=== PATIENT | female | born 1940 | race Caucasian/White ===

== ENCOUNTER 2016-09-21 05:02 | Inpatient (IN) ==
[2016-09-20 13:02] LABS: MANUAL DIFF NEEDED? NO; URINE MICRO REVIEW NEEDED? NO; URINE SOURCE CLEAN CATCH
[2016-09-20 13:12] LABS: BASO% 0.5 % (0.0-0.8); BILIRUBIN URINE NEGATIVE (NEGATIVE); BLOOD URINE NEGATIVE (NEGATIVE); COLOR YELLOW; EOS# 0.51 X1000 (0.0-0.7); EOS% 6.2 % (0.0-10.0); GLUCOSE URINE NEGATIVE (NEGATIVE); HEMATOCRIT 40.1 % (37.0-47.0); HEMOGLOBIN 13.1 g/dL (12.0-16.0); LEUKOCYTES URINE NEGATIVE (NEGATIVE); LYMPH# 1.81 X1000 (1.2-3.4); MCH 29.3 PG (27-31); MCHC 32.7 g/dL (33-37); MCV 89.7 FL (81-99); MONO# 1.17 X1000 (0.11-0.59); MONO% 14.3 % (1.7-9.3); MPV 9.3 FL (7.4-10.4); NITRITE URINE NEGATIVE (NEGATIVE); PH URINE 5.5; PLT 363 X1000 (130-400); PROTEIN URINE NEGATIVE (NEGATIVE); RBC 4.47 XMIL (4.2-5.4); SP GRAVITY URINE 1.009; TURBIDITY URINE CLEAR (CLEAR); UROBILINOGEN URINE NORMAL (NORMAL)
[2016-09-20 13:13] LABS: UR EPITHELIAL CELLS <10 /HPF (<10); URINE BACTERIA NEGATIVE /HPF; URINE RBC <10 /HPF (<10); URINE WBC <10 /HPF (<10)
[2016-09-20 13:21] LABS: INR 0.96; PTT 27.3 Seconds (22.0-36.0)
[2016-09-20 13:58] LABS: AGAP 15; BUN 19 mg/dL (8-22); CALCIUM 9.6 mg/dL (8.8-10.2); CHLORIDE 98 mmol/L (98-107); COSMO 277; POTASSIUM 4.9 mmol/L (3.5-5.1); SODIUM 138 mmol/L (136-145); TCO2 25 mmol/L (25-35)
--- NOTE | 2016-09-20 14:22 | EKG Report ---
Test Performed on : 09/20/2016 12:49:01 PM Test Reason : pat Blood Pressure : / mmHG Vent. Rate : 065 BPM Atrial Rate : 065 BPM P-R Int : 180 ms QRS Dur : 090 ms QT Int : 392 ms P-R-T Axes : 025 012 054 degrees QTc Int : 407 ms Normal sinus rhythm. Normal ECG When compared with ECG of 07-APR-2015 14:18, No significant change was found Confirmed by Derrick Cruz MD ([id number]) on 09/22/2016 12:04:19 PM
[2016-09-21] MEDS ORDERED: CELEBREX ONE (08:37)
[2016-09-21] MEDS ORDERED: COLACE ONE (08:37)
[2016-09-21] MEDS ORDERED: LYRICA ONE (08:37)
[2016-09-21] MEDS ORDERED: LR 1,000 ML ONE ×2 (08:38→13:31)
[2016-09-21] MEDS ORDERED: PEPCID ONE (08:38)
[2016-09-21] MEDS ORDERED: KEFZOL 2 GM/D5W 2 GM/50 ML IVPB ONE (08:38)
[2016-09-21] MEDS: REGLAN PO SCH (08:49)
[2016-09-21] MEDS ORDERED: SODIUM CHLORIDE 0.9% ONE (09:35)
[2016-09-21] MEDS ORDERED: MARCAINE 0.25% PF/EPI 1:200,000 ONE (09:35)
[2016-09-21] MEDS ORDERED: VANCOMYCIN ONE (09:35)
[2016-09-21] MEDS ORDERED: TORADOL ONE (09:35)
[2016-09-21] MEDS ORDERED: EXPAREL 1.3% ONE (09:36)
[2016-09-21] MEDS ORDERED: CYKLOKAPRON 1,000 MG/NS 1,000 MG/100 ML IVPB ONE ×2 (09:36→09:37)
[2016-09-21] MEDS ORDERED: NEOSPORIN G.U. IRRIGANT ONE (09:36)
[2016-09-21 10:55] LABS: URINE MICRO REVIEW NEEDED? NO; URINE SOURCE CATH
[2016-09-21 10:59] LABS: BILIRUBIN URINE NEGATIVE (NEGATIVE); BLOOD URINE NEGATIVE (NEGATIVE); COLOR YELLOW; GLUCOSE URINE NEGATIVE (NEGATIVE); LEUKOCYTES URINE NEGATIVE (NEGATIVE); NITRITE URINE NEGATIVE (NEGATIVE); PH URINE 5.5; PROTEIN URINE NEGATIVE (NEGATIVE); SP GRAVITY URINE 1.009; TURBIDITY URINE CLEAR (CLEAR); UROBILINOGEN URINE NORMAL (NORMAL)
[2016-09-21 11:00] LABS: UR EPITHELIAL CELLS <10 /HPF (<10); URINE BACTERIA NEGATIVE /HPF; URINE RBC <10 /HPF (<10); URINE WBC <10 /HPF (<10)
[2016-09-21] MEDS: SYNTHROID PO SCH (12:08)
[2016-09-21] MEDS: PRINIVIL PO SCH (12:09)
[2016-09-21] MEDS: MOBIC PO SCH (12:09)
[2016-09-21] MEDS: TOPROL XL PO SCH (12:09)
[2016-09-21] MEDS ORDERED: KETAMINE (DOSE) ONE (13:14)
[2016-09-21] MEDS ORDERED: FENTANYL ONE (13:14)
[2016-09-21] MEDS ORDERED: AMIDATE ONE (13:30)
[2016-09-21] MEDS ORDERED: XYLOCAINE-MPF 2% ONE (13:30)
[2016-09-21] MEDS ORDERED: ROBINUL ONE (13:30)
[2016-09-21] MEDS ORDERED: ZOFRAN ONE (13:30)
[2016-09-21] MEDS ORDERED: OFIRMEV 1000 MG/ISOTONIC SOLN 1,000 MG/100 ML BOTTLE ONE (13:31)
[2016-09-21] MEDS ORDERED: DECADRON ONE (13:31)
[2016-09-21] MEDS ORDERED: DILAUDID ONE (13:44)
[2016-09-21] MEDS ORDERED: NS 1,000 ML ONE (14:00)
--- NOTE | 2016-09-21 14:29 | OPERATIVE NOTE ---
PROCEDURE DATE: 09/21/2016 PREOPERATIVE DIAGNOSIS: Failed right total knee arthroplasty, status post periprosthetic distal femur fracture with malunion. POSTOPERATIVE DIAGNOSIS: Failed right total knee arthroplasty, status post periprosthetic distal femur fracture with malunion. PROCEDURE PERFORMED: Revision right total knee arthroplasty with DePuy Sigma size 3 distal femur with a 46 femoral sleeve and an 18 x 75 universal fluted stem, with a size 3 tibial tray, a 53 metaphyseal sleeve, a 75 x 16 mm universal fluted stem, and a 20 mm rotating platform tibial insert. SURGEON: Piotr Oliver MD 1ST WREATH MACHINE TENDER: GWENDOLYN Rubin 2ND ASSISTANTS: 1. PARNAV Ruiz 2. Todd Ramachandran RN ANESTHESIA: General. IV FLUIDS: 1100 mL of lactated Ringer's. ESTIMATED BLOOD LOSS: 50 mL. TOURNIQUET TIME: 2 hours at 350 mmHg. COMPLICATIONS: None. INDICATIONS: The patient is a pleasant 76-year-old female who is status post right total knee arthroplasty in 2014. The patient, in her postoperative recovery, did sustain a fracture involving the distal femur laterally. It was treated nonoperatively. It went on to heal. Over the last 2 years, patient has had some worsening pain and discomfort, and x-rays did reveal malunion of the distal femur. Given the patient's continued pain and discomfort, a recommendation to proceed with revision total knee arthroplasty was offered. The risks and benefits of surgery were explained, including risks of anesthesia, , bleeding, infection, failure to relieve pain, postoperative stiffness, nerve injury, blood clots, and other imponderables. All questions were answered. The patient and family wished to proceed with surgery. DETAILS OF OPERATION: The patient was taken to the operating room and placed supine on the operating table. Once adequate anesthesia was obtained, the patient's right lower extremity was subsequently prepped and draped in the usual sterile fashion. An anterior incision was made through the previous surgical incision and extended both proximally and distally. Standard medial parapatellar arthrotomy was then performed. Intraoperative cultures were obtained. There was some serous fluid noted and no signs or symptoms of infection. The procedure proceeded with removal of the tibial tray. After this had been performed, attention was then turned to the distal femur. It was noted that the distal femoral component appeared be recessed in the lateral portion of the femur from the previous fracture. After an osteotome was used to [place] around both medial and laterally along the femoral component, this was then removed without difficulty. A saw was then used just below the tibial tray and this was then elevated. An osteotome was used to remove the cement on the proximal tibia. After this had been performed, intramedullary reaming was then conducted into the distal femur. The proximal tibia was then overreamed. After this had been performed, sequential broaching with a metaphyseal broach was conducted up to size 53. A size 53 trial sleeve with a size 3 tibial component and a 75 x 16 mm stem was then placed in position and had good fit. Attention was then turned to the distal femur and intramedullary reaming was then conducted. Sequential broaching was then performed up to size 46. The guide was then placed and the distal femoral cut was then performed in standard fashion. The patient had significant bone loss laterally. Chamfer cuts were then made as well. Anterior and posterior cuts were made as well. A box cutting guide was then placed in position and a box cut was performed. After this had been performed, the trial broach was removed. A trial size 3 femur with a 46 sleeve and a 75 x 18 universal fluted stem was then placed in position. It appeared to have good fit. A trial polyethylene was then placed. The patient did have some lateral translation of the patella and a lateral release was performed. After this had been performed, the patellar component had no obvious loosening. The trial components were removed. The femoral and tibial components were assembled on the back table while copious irrigation was performed with antibiotic pulsatile lavage. Vancomycin was then mixed with cement on the back table. Sequential cementing was then performed, first with the tibial tray, along the superior aspect of the proximal tibia and the size 3 with the 53 metaphyseal sleeve and a 75 x 16 universal fluted stem was then impacted in the tibia. Excess cement was removed with a [place]. This was followed by a size 3 femur, size 46 universal femoral sleeve, and a 75 x 18 mm universal fluted stem impacted in position. Excess cement was removed with a [place]. A trial tibial insert was placed and axial loading was maintained while the cement cured. Exparel was placed in the deep soft tissue as well as subcutaneous tissue while the cement was curing. After the cement had cured, the size 20 mm tibial insert appeared to be the correct size. This was then removed. Exparel was placed in the deep posterior capsule. The wound was copiously irrigated with antibiotic pulsatile lavage, followed by the 20 mm rotating platform tibial insert. The patient had good stability good range of motion. A 1/8 Hemovac drain was placed was not sewn in. Copious irrigation was performed once again with antibiotic pulsatile lavage. Suture of #1 Vicryl was then used to repair the arthrotomy, followed by 2-0 Vicryl in the subcutaneous tissue, and skin laura. Sterile 4 x 4's, ABD pad, [place], and a cryo unit, followed by an [place] wrap were applied to the right lower extremity. The patient tolerated the procedure well with no complications and was transferred to the recovery room in stable condition. cc: Piotr Oliver MD
--- NOTE | 2016-09-21 14:35 | Diag Imaging Result Document ---
PROCEDURE NAME: KNEE 1-2 VIEWS-RIGHT - 09/21/2016 PLAIN RADIOGRAPH OF THE RIGHT KNEE, 2 VIEWS: COMPARISON: 04/08/2015. FINDINGS: There has been a recent revision of a right knee arthroplasty. The new arthroplasty hardware is in the expected position. There is no evidence of periprosthetic fracture. Anterior skin laura and a drainage catheter are in place. IMPRESSION: Satisfactory postoperative knee.
[2016-09-21] MEDS ORDERED: DILAUDID IV PRN (14:40)
[2016-09-21] MEDS ORDERED: MILK OF MAGNESIA PO PRN (14:45)
[2016-09-21] MEDS ORDERED: ZOFRAN PO PRN (14:45)
[2016-09-21] MEDS: OXY IR PO PRN ×3 (15:32→21:26)
[2016-09-21] MEDS: NS 1,000 ML IV SCH (15:34)
--- NOTE | 2016-09-21 15:42 | HISTORY AND PHYSICAL ---
CHIEF COMPLAINT: Right knee pain. HISTORY OF PRESENT ILLNESS: Patient has been having right knee pain for some time after a periprosthetic fracture of the right knee. PAST MEDICAL HISTORY: Hypertension, hyperlipidemia, gastroesophageal reflux disease, hyperthyroidism. PAST SURGICAL HISTORY: Bilateral cataracts. Right total knee arthroplasty. Left ear surgery. Hammertoes bilaterally. Right wrist surgery. FAMILY HISTORY: Noncontributory. SOCIAL HISTORY: She is . She denies tobacco. Denies alcohol. CURRENT MEDICATIONS: Lisinopril 40 mg p.o. daily. Fosamax 70 mg p.o. every 7 days. Pravachol 20 mg p.o. at bedtime. Toprol-XL 100 mg p.o. daily. Synthroid 150 mcg p.o. daily. Mobic 7.5 mg p.o. daily. Ultram 50 mg p.o. p.r.n. Reglan 10 mg p.o. daily. ALLERGIES: Morphine. PRIMARY CARE PROVIDER: Daniel Baeza MD REVIEW OF SYSTEMS: Patient reports wearing glasses and having dentures and having right knee pain. The patient answered negative in all other review of systems. PHYSICAL EXAMINATION: GENERAL: The patient is awake, sitting up in bed. She is articulate and able to answer questions appropriately. HEENT: Head is normocephalic, atraumatic. Pupils equal, round, reactive to light. Nares patent. Throat without exudate. CARDIAC: S1-S2 auscultated. No murmur, rub or gallop noted. LUNGS: Clear to auscultation bilaterally. ABDOMEN: Soft, nontender, nondistended. Bowel sounds present in all quadrants. GENITOURINARY: Not examined. NEUROLOGICAL: Patient has good sensation to dull touch in all extremities. Cranial nerves 2-12 grossly intact. MUSCULOSKELETAL: Patient complains of right knee pain with palpation and passive range of motion. IMPRESSION: Right distal femur periprosthetic fracture. PLAN: Right knee revision post periprosthetic femur fracture. The risks benefits and alternatives of surgery were discussed with the patient, including risk of anesthesia, bleeding, damage to blood vessels, nerves, tendons, ligaments, and other imponderables were discussed. The patient agrees to proceed with surgery at this time. Dictated by PRANAV Ruiz for Piotr Oliver MD cc: PRANAV Ruiz MD
[2016-09-21] MEDS: TYLENOL PO SCH ×2 (16:36→21:23)
[2016-09-21] MEDS: KEFZOL 2 GM/D5W 2 GM/50 ML IVPB IV SCH (17:18)
[2016-09-21] MEDS: COLACE PO SCH (21:27)
[2016-09-21] MEDS: PERIDEX MT SCH (21:27)
[2016-09-21] MEDS: PRAVACHOL PO SCH (21:27)
[2016-09-22] MEDS: KEFZOL 2 GM/D5W 2 GM/50 ML IVPB IV SCH (02:07)
[2016-09-22] MEDS: TYLENOL PO SCH ×5 (02:07→21:01)
[2016-09-22] MEDS: NS 1,000 ML IV SCH ×2 (02:08→16:21)
[2016-09-22] MEDS: OXY IR PO PRN ×5 (03:36→21:01)
[2016-09-22 06:39] LABS: HEMATOCRIT 31.9 % (37.0-47.0); HEMOGLOBIN 10.2 g/dL (12.0-16.0)
[2016-09-22] MEDS: SYNTHROID PO SCH (06:47)
[2016-09-22] MEDS: XARELTO PO SCH (06:47)
[2016-09-22 07:01] LABS: AGAP 12; BUN 17 mg/dL (8-22); CALCIUM 8.2 mg/dL (8.8-10.2); CHLORIDE 100 mmol/L (98-107); COSMO 272; POTASSIUM 5.2 mmol/L (3.5-5.1); SODIUM 135 mmol/L (136-145); TCO2 23 mmol/L (25-35)
--- NOTE | 2016-09-22 07:10 | PROGRESS NOTE ---
DATE: 09/22/2016 SUBJECTIVE: The patient is a pleasant 76-year-old female who is 1 day status post right revision right total knee arthroplasty. She is currently resting comfortably. OBJECTIVE: On physical exam of her right lower extremity her dressing is intact. Her calf is soft. She has active dorsiflexion and plantar flexion. LABORATORY DATA: Her hemoglobin is 10.2 and hematocrit is 31.9. IMPRESSIONS: Postoperative day #1 status post revision right total knee arthroplasty. PLAN: At this point, we will change her dressing and discontinue her drain and Irene. We will also Hep-Lock her IV. We will mobilize with physical therapy. Concrete Batching Plant Operator has been consulted for discharge planning for home physical therapy. cc: Piotr Oliver MD
[2016-09-22] MEDS: TOPROL XL PO SCH (08:31)
[2016-09-22] MEDS: PRINIVIL PO SCH (08:31)
[2016-09-22] MEDS: PEPCID PO SCH (08:32)
[2016-09-22] MEDS: PERIDEX MT SCH ×2 (08:32→21:01)
[2016-09-22] MEDS: MOBIC PO SCH (08:32)
[2016-09-22] MEDS: COLACE PO SCH ×2 (08:32→21:01)
[2016-09-22] MEDS ORDERED: DECADRON IV ONE (09:00)
[2016-09-22] MEDS: PRAVACHOL PO SCH (21:01)
[2016-09-23] MEDS: OXY IR PO PRN ×4 (00:32→12:12)
[2016-09-23] MEDS: TYLENOL PO SCH ×2 (01:28→08:38)
[2016-09-23 05:50] LABS: HEMATOCRIT 27.2 % (37.0-47.0); HEMOGLOBIN 8.5 g/dL (12.0-16.0)
[2016-09-23] MEDS: XARELTO PO SCH (06:10)
[2016-09-23] MEDS: SYNTHROID PO SCH (06:10)
--- NOTE | 2016-09-23 06:47 | PROGRESS NOTE ---
DATE: 09/23/2016 SUBJECTIVE: The patient is a 76-year-old female, 2 days status post revision right total knee arthroplasty. She is currently resting comfortably. PHYSICAL EXAMINATION: Lower extremity: Her right lower extremity her wound looks good. There is no signs of infection. She has expected swelling. Her calf is soft. She has active dorsiflexion and plantar flexion. Her hemoglobin is 8.5, hematocrit is 27.2. IMPRESSION: 1. Postoperative day #2, status post revision right total knee arthroplasty. 2. Acute blood loss anemia, asymptomatic. PLAN: At this point, we will plan on discharging home after physical therapy. We will consult Family And Divorce Legal Assistant to arrange for home physical therapy. Patient will followup on 10/04/2016. cc: Piotr Oliver MD
[2016-09-23] MEDS: PERIDEX MT SCH (08:37)
[2016-09-23] MEDS: PEPCID PO SCH (08:37)
[2016-09-23] MEDS: MOBIC PO SCH (08:38)
[2016-09-23] MEDS: REGLAN PO SCH (08:38)
[2016-09-23] MEDS: PRINIVIL PO SCH (08:39)
[2016-09-23] MEDS: COLACE PO SCH (08:39)
[2016-09-23] MEDS: TOPROL XL PO SCH (08:39)
[2016-09-23 11:10] VITALS: BP 108/44
[2016-09-28] MEDS ORDERED: FOSAMAX PO SCH (06:00)
== END 2016-09-23 12:25 | disposition home health service (06) ==
LOC: SURHOLD 05:02 → 4N 11:41
PROVIDERS: ADMIT Orthopaedic Surgery Adult Reconstructive Orthopaedic Surgery; ATTEND Orthopaedic Surgery Adult Reconstructive Orthopaedic Surgery

== ENCOUNTER 2018-10-30 07:59 | Inpatient (IN) ==
--- NOTE | 2018-10-23 09:16 | EKG Report ---
Test Performed on : 10/23/2018 08:57:55 AM Test Reason : PAT Blood Pressure : / mmHG Vent. Rate : 072 BPM Atrial Rate : 072 BPM P-R Int : 190 ms QRS Dur : 106 ms QT Int : 364 ms P-R-T Axes : 036 021 065 degrees QTc Int : 398 ms Normal sinus rhythm. Normal ECG When compared with ECG of 20-SEP-2016 12:49, No significant change was found Confirmed by Doc CHAVEZ, Yazan Blank ([id number]) on 10/24/2018 9:43:34 AM
[2018-10-23 09:28] LABS: URINE SOURCE CLEAN CATCH
[2018-10-23 09:31] LABS: BASO# 0.06 X1000 (0.0-0.2); BASO% 0.6 % (0.0-0.8); EOS# 0.35 X1000 (0.0-0.7); EOS% 3.6 % (0.0-10.0); HEMOGLOBIN 13.1 g/dL (12.0-16.0); LYMPH# 2.05 X1000 (1.2-3.4); LYMPH% 20.9 % (20.5-51.1); MCH 29.4 PG (27-31); MCV 92.1 FL (81-99); MONO# 1.34 X1000 (0.11-0.59); MONO% 13.6 % (1.7-9.3); MPV 9.5 FL (7.4-10.4); NEUT# 6.03 X1000 (1.4-6.5); NEUT% 61.3 % (42.2-75.2); PLT 440 X1000 (130-400); RBC 4.45 XMIL (4.2-5.4); RDW 15.5 % (11.5-14.5); WBC 9.83 X1000 (4.8-10.8)
[2018-10-23 09:44] LABS: INR 0.99; PROTIME 13.9 Seconds (11.0-16.0)
[2018-10-23 10:25] LABS: CREATININE 1.7 mg/dL (0.5-0.9); POTASSIUM 5.8 mmol/L (3.5-5.1)
[2018-10-23 10:30] LABS: BILIRUBIN URINE NEGATIVE (NEGATIVE); BLOOD URINE TRACE (NEGATIVE); COLOR YELLOW; GLUCOSE URINE NEGATIVE (NEGATIVE); KETONE URINE NEGATIVE (NEGATIVE); LEUKOCYTES URINE LARGE (NEGATIVE); NITRITE URINE NEGATIVE (NEGATIVE); PROTEIN URINE TRACE mg/dL (NEGATIVE); SP GRAVITY URINE 1.012; TURBIDITY URINE HAZY (CLEAR); UR EPITHELIAL CELLS <10 /HPF (<10); URINE BACTERIA NEGATIVE /HPF; URINE RBC <10 /HPF (<10); URINE WBC TNTC /HPF (<10); UROBILINOGEN URINE NORMAL (NORMAL)
[2018-10-30] MEDS ORDERED: XYLOCAINE-MPF 2% ONE (08:06)
[2018-10-30] MEDS ORDERED: DIPRIVAN 1% ONE (08:06)
[2018-10-30] MEDS ORDERED: ROBINUL ONE ×2 (08:06→10:33)
[2018-10-30] MEDS ORDERED: PEPCID ONE (08:19)
[2018-10-30] MEDS ORDERED: REGLAN ONE (08:19)
[2018-10-30] MEDS ORDERED: CELEBREX ONE (08:19)
[2018-10-30] MEDS ORDERED: LYRICA ONE (08:19)
[2018-10-30] MEDS ORDERED: COLACE ONE ×2 (08:19→08:43)
[2018-10-30] MEDS ORDERED: LR 1,000 ML ONE (08:20)
[2018-10-30] MEDS ORDERED: KEFZOL 1 GM/D5W 2 GM/100 ML IVPB ONE (08:20)
[2018-10-30] MEDS ORDERED: DURAMORPH ONE (08:59)
[2018-10-30] MEDS ORDERED: TORADOL ONE (08:59)
[2018-10-30] MEDS ORDERED: MARCAINE 0.25% PF/EPI 1:200,000 ONE (08:59)
[2018-10-30] MEDS ORDERED: VANCOMYCIN ONE (09:00)
[2018-10-30] MEDS ORDERED: SODIUM CHLORIDE 0.9% ONE (09:00)
[2018-10-30] MEDS ORDERED: CYKLOKAPRON 1,000 MG/NS 1,000 MG/100 ML IVPB ONE (09:00)
[2018-10-30] MEDS ORDERED: EXPAREL 1.3% ONE (09:01)
[2018-10-30] MEDS ORDERED: NEOSPORIN G.U. IRRIGANT ONE ×2 (09:01→09:48)
[2018-10-30 09:12] LABS: POTASSIUM 5.9 mmol/L (3.5-5.1)
[2018-10-30 09:13] LABS: CALCIUM 9.2 mg/dL (8.8-10.2); CREATININE 1.5 mg/dL (0.5-0.9)
[2018-10-30] MEDS ORDERED: CALCIUM CHLORIDE SYRINGE ONE (09:40)
[2018-10-30] MEDS ORDERED: ZEMURON ONE (10:01)
[2018-10-30] MEDS ORDERED: DECADRON ONE (10:03)
[2018-10-30] MEDS ORDERED: OFIRMEV 1000 MG/ISOTONIC SOLN 1,000 MG/100 ML BOTTLE ONE (10:04)
[2018-10-30] MEDS ORDERED: VERSED ONE (10:06)
[2018-10-30 10:32] LABS: URINE SOURCE CATH
[2018-10-30] MEDS ORDERED: NEOSTIGMINE ONE (10:33)
[2018-10-30 10:36] LABS: BILIRUBIN URINE NEGATIVE (NEGATIVE); BLOOD URINE NEGATIVE (NEGATIVE); COLOR YELLOW; GLUCOSE URINE NEGATIVE (NEGATIVE); KETONE URINE NEGATIVE (NEGATIVE); LEUKOCYTES URINE MODERATE (NEGATIVE); NITRITE URINE NEGATIVE (NEGATIVE); PH URINE 5.5; PROTEIN URINE NEGATIVE (NEGATIVE); TURBIDITY URINE CLEAR (CLEAR); UROBILINOGEN URINE NORMAL (NORMAL)
[2018-10-30 10:39] LABS: UR EPITHELIAL CELLS <10 /HPF (<10); URINE BACTERIA NEGATIVE /HPF; URINE RBC <10 /HPF (<10); URINE WBC 20-40 /HPF (<10)
[2018-10-30] MEDS ORDERED: NS 1,000 ML ONE (12:08)
[2018-10-30] MEDS: DILAUDID ONE ×2 (12:16→12:28)
[2018-10-30] MEDS ORDERED: DILAUDID ONE (12:46)
--- NOTE | 2018-10-30 12:50 | Diag Imaging Result Doc PS360 ---
KNEE 1-2 VIEWS-LEFT - 10/30/2018 INDICATION: post op TECHNIQUE: Two views COMPARISON: None FINDINGS: There has been placement of a long stemmed, hinged knee prosthesis. Alignment is anatomic. No hardware fracture or loosening. IMPRESSION: No complication. Electronically signed by Dharmesh Go 10/30/2018 12:47 PM
[2018-10-30] MEDS ORDERED: DILAUDID IV PRN (14:45)
[2018-10-30] MEDS ORDERED: ZOFRAN ODT PO PRN (14:45)
[2018-10-30] MEDS ORDERED: OXY IR PO PRN (14:45)
[2018-10-30] MEDS: OXY IR PO PRN ×3 (14:56→21:01)
--- NOTE | 2018-10-30 15:10 | OPERATIVE NOTE ---
PROCEDURE DATE: 10/30/2018 PREOPERATIVE DIAGNOSIS: Degenerative joint disease, right knee. POSTOPERATIVE DIAGNOSIS: Degenerative joint disease, right knee. PROCEDURE PERFORMED: Right total knee replacement. SURGEON: Pj Lloyd MD. FOOD PROCESSING PLANT MANAGER: PRANAV Perez. Mr. Trejo was necessary for proper retraction and manipulation of the case. ANESTHESIA: General. COMPLICATION: None. PROCEDURE IN DETAIL: This 78-year-old female presents for a left total knee replacement. Risks, benefits, and no guarantees were discussed, and she is willing to proceed. She was taken to the operating room and satisfactory anesthesia obtained. The left knee was prepped and draped in the usual sterile fashion. A time-out was taken to confirm operative site, procedure and patient. The leg was then wrapped with an Esmarch tourniquet and inflated 350 mmHg. A midline incision was made over the front of the knee followed by a quad tendon sparing arthrotomy. The patella was everted and resurfaced with freehand technique and sized to a 32 DePuy round dome patella. The drill paddle was used to prepare for the patellar implant, and a trial patella placed on this to protect it. With the patella subluxed laterally, the knee was flexed. An intramedullary hole made in the distal femur. Sequential broaching of the distal femur was undertaken up to an 18 stem. A proximal sleeve was then broached for the femur up to a 46 femoral sleeve for the Sigma revision stem prosthesis. The distal femoral cut was then made. The tibial cut was then made freehand and tibial reaming down the intramedullary canal of the tibia with the knee flexed undertaken up to an 18 reamer. Tibial sleeve was then broached up to a 45 tibial sleeve. A size 3 femoral component and tibial component was selected. The finishing block for the femur was then placed onto the intramedullary collin, and the rotation set using a soft tissue balancing off the tibial tray. The anterior and posterior and chamfer cuts of the femur were then made followed by the notch cup. After final preparation of the femur and tibia, any remaining osteophytes or meniscal tissue was excised with care taken to preserve the collateral ligaments and neurovascular bundles. A trial reduction was performed with a 12.5 mm poly thickness spacer with good range of motion and stability. The trial components were removed and the bony surfaces thoroughly irrigated with pulsatile lavage. The tibial and femoral implants were assembled on the back table with a size 3 tibial tray connected to a 45 porous sleeve and a 75 x 18 fluted stem. The femoral component was assembled with a right size 3 Sigma revision femoral component with a 46 sleeve and a 75 x 18 stem. Cement with a gram of vancomycin was then utilized to cement the implants in place, as well as a 32 medialized dome patellar poly. While the cement cured, the joint capsule was injected with Exparel for pain management. A Hemovac drain placed. The excess cement was removed with a [place] elevator. After curing of the cement, a size 3 posterior stabilized rotating platform poly 12.5 thickness was inserted in the tibial tray and the knee reduced. Final range of motion was assessed with 0 to 125 degrees of motion and midline patellar tracking. The arthrotomy was copiously irrigated and closed over the drain with #1 Vicryl in the arthrotomy, 2-0 Vicryl in the subcutaneous and skin laura on the skin edges. Sterile dressings completed the closure, and the patient was recovered from anesthesia and transferred to the recovery room in stable condition. No intraoperative complications were noted. Instrument count and sponge count were correct at the time of closure. cc: Isai Lloyd MD
[2018-10-30] MEDS: NEURONTIN PO SCH ×2 (15:40→21:02)
[2018-10-30] MEDS: ULTRAM PO SCH ×3 (15:41→22:09)
[2018-10-30] MEDS: TYLENOL PO SCH ×2 (15:42→23:08)
--- NOTE | 2018-10-30 15:46 | ORTHOPAEDICS PROGRESS NOTE ---
DATE: 10/30/2018 Ms. Salas is seen status post total knee replacement. She is alert and comfortable the present time. Her postop x-rays look good in terms of the alignment. Vital signs are stable. Her bandage is clean and dry and she appears to be motor and sensory intact. We will plan on mobilizing her and discharging home when she is mobilizing well. cc: Isai Lloyd MD
[2018-10-30] MEDS: KEFZOL 2 GM/D5W 2 GM/50 ML IVPB IV SCH (17:55)
[2018-10-30] MEDS: NS 1,000 ML IV SCH (19:00)
[2018-10-30] MEDS ORDERED: PEPCID PO SCH (21:00)
[2018-10-30] MEDS: ZANAFLEX PO SCH (21:01)
[2018-10-30] MEDS: PERIDEX MT SCH (21:02)
[2018-10-30] MEDS: PRAVACHOL PO SCH (21:02)
[2018-10-30] MEDS: CELEBREX PO SCH (21:08)
[2018-10-30] MEDS: ZOFRAN IV PRN (21:08)
[2018-10-30] MEDS: COLACE PO SCH (21:08)
[2018-10-30] MEDS: PEPCID PO SCH (23:08)
[2018-10-31] MEDS: KEFZOL 2 GM/D5W 2 GM/50 ML IVPB IV SCH (01:11)
[2018-10-31] MEDS: ZOFRAN IV PRN (04:42)
[2018-10-31] MEDS: TYLENOL PO SCH ×4 (04:43→21:48)
[2018-10-31] MEDS: OXY IR PO PRN (04:43)
[2018-10-31] MEDS: ULTRAM PO SCH ×2 (04:46→08:59)
[2018-10-31 05:47] LABS: HEMATOCRIT 37.6 % (37.0-47.0)
[2018-10-31] MEDS: SYNTHROID PO SCH (06:20)
[2018-10-31] MEDS: NS 1,000 ML IV SCH ×3 (06:20→15:27)
[2018-10-31] MEDS: DILAUDID IV PRN (06:39)
--- NOTE | 2018-10-31 07:21 | ORTHOPAEDICS PROGRESS NOTE ---
DATE: 10/31/2018 Ms. Salas is seen today status post knee replacement. At the present time, she is afebrile with stable vital signs. Her postop hematocrit is pending at the present time but started at 36 with minimal blood loss yesterday. Her bandage is clean and dry. She appears to be motor and sensory intact. We will plan on mobilizing her today and she can go home today with home therapy. We will see her back in roughly 12 days. She is to continue with all her regular medicines. She is to return in the interim for any worsening signs or symptoms. She is discharged home on her regular medicines plus Smyer 10 as needed for pain, Bactrim as needed for antibiotic prophylaxis, and aspirin once a day at 325 mg for DVT prophylaxis. cc: Isai Lloyd MD
[2018-10-31 07:37] LABS: CALCIUM 8.4 mg/dL (8.8-10.2); CREATININE 1.3 mg/dL (0.5-0.9)
[2018-10-31 07:41] LABS: POTASSIUM 7.4 mmol/L (3.5-5.1)
[2018-10-31] MEDS ORDERED: KAYEXALATE PO ONE (07:45)
[2018-10-31] MEDS ORDERED: NS 500 ML IV ONE (08:37)
[2018-10-31] MEDS ORDERED: PRINIVIL PO SCH (09:00)
[2018-10-31] MEDS ORDERED: PEPCID PO SCH (09:00)
[2018-10-31] MEDS ORDERED: KLOR-CON PO SCH (09:00)
[2018-10-31] MEDS: NEURONTIN PO SCH ×3 (09:00→20:17)
[2018-10-31] MEDS: COLACE PO SCH ×2 (09:01→20:17)
[2018-10-31] MEDS: ASPIRIN PO SCH (09:02)
[2018-10-31] MEDS: ZANAFLEX PO SCH (09:03)
[2018-10-31] MEDS: CELEBREX PO SCH (09:03)
[2018-10-31] MEDS: PERIDEX MT SCH ×2 (09:03→20:17)
[2018-10-31] MEDS: TOPROL XL PO SCH (09:03)
[2018-10-31] MEDS ORDERED: ALBUTEROL NEB INH ONE (09:08)
[2018-10-31] MEDS ORDERED: D50W SYRINGE IV ONE ×2 (09:08→14:00)
[2018-10-31] MEDS ORDERED: HUMULIN R IV ONE ×2 (09:08→14:00)
[2018-10-31] MEDS ORDERED: SODIUM BICARBONATE 8.4% IV PUSH ONE (09:10)
[2018-10-31] MEDS ORDERED: CALCIUM GLUCONATE 1 GM in NS 50 ML IV ONE (09:10)
--- NOTE | 2018-10-31 09:22 | EKG Report ---
Test Performed on : 10/31/2018 09:16:47 AM Test Reason : ELEVATED POTASSIUM, LOW BP Blood Pressure : / mmHG Vent. Rate : 059 BPM Atrial Rate : 059 BPM P-R Int : 194 ms QRS Dur : 100 ms QT Int : 402 ms P-R-T Axes : 021 -02 042 degrees QTc Int : 397 ms Sinus bradycardia. Minimal voltage criteria for LVH, may be normal variant Borderline ECG When compared with ECG of 23-OCT-2018 08:57, No significant change was found Confirmed by Doc CHAVEZ, Yazan Blank ([id number]) on 10/31/2018 9:45:40 AM
[2018-10-31] MEDS ORDERED: ALBUTEROL 0.5% INH CONC FOR HYPERKALEMIA INH ONE ×2 (09:26→14:00)
[2018-10-31] MEDS ORDERED: NS 1,000 ML IV ONE ×2 (10:18→14:00)
--- NOTE | 2018-10-31 10:39 | Diag Imaging Result Doc PS360 ---
CHEST-PORTABLE - 10/31/2018 INDICATION: KAMILA, bradycardia COMPARISON: 04/07/2015 FINDINGS: Lung volumes are severely low. There is some increasing linear atelectasis in the right lung base. Otherwise no focal infiltrates or edema. Heart size and pulmonary vascularity is normal. IMPRESSION: Low lung volumes. Increasing linear atelectasis in the right lung base. Electronically signed by Dharmesh Go 10/31/2018 10:37 AM
--- NOTE | 2018-10-31 11:07 | HISTORY AND PHYSICAL ---
PRIMARY CARE PHYSICIAN: Dr. Daniel Baeza. Her orthopedic surgeon is Dr. Smith Lloyd. CHIEF COMPLAINT: Hypotension, acute kidney injury and hyperkalemia. HISTORY OF PRESENT ILLNESS: This is a very pleasant 78-year-old female with a history of hypertension, hypothyroid, gastroesophageal reflux disease, and degenerative joint disease. She underwent right total knee replacement on October 30. Routine Labs this morning revealed a potassium of 7.4 with a sodium of 127 and a creatinine of 1.3. The patient denies any prior history of acute kidney injury or hyperkalemia. PAST MEDICAL HISTORY: Hypertension, hypothyroid gastroesophageal reflux disease and degenerative joint disease. PAST SURGICAL HISTORY: Knee replacement. SOCIAL HISTORY: She denies alcohol, tobacco, or illicit drug use. ALLERGIES: Morphine, which causes a rash. HOME MEDICATIONS: Fosamax, aspirin, Pepcid, Lasix, gabapentin, Sherrill, Synthroid, Prinivil, Mobic, Toprol-XL, Klor-Con, Pravachol, Zanaflex. REVIEW OF SYSTEMS: Discussed with patient with pertinent positives stated in HPI. She denied any syncope, dizziness, any chest pain or palpitations, any shortness of breath, cough, fever, chills, night sweats, any vomiting, diarrhea, constipation, any black or bloody vomitus or stools, hematuria, dysuria, frequency, urgency. PHYSICAL EXAMINATION: GENERAL: This is a 78-year-old female who is lying in the bed in no distress. VITAL SIGNS: Blood pressure is 84/60 with a heart rate of 58 to 59, respirations are 16 to 18, temperature is 97.5 degrees oral with O2 saturations that are 98 to 100 percent. HEENT: Normocephalic, atraumatic. Mucous membranes are moist. NECK: Supple, trachea midline. CARDIOVASCULAR: Regular rate and rhythm. S1, S2 appreciated. She is bradycardic. Calves are nontender bilateral with peripheral pulses palpable x4 extremities. PULMONARY: Breath sounds are clear with no increased work of breathing noted. Chest rises and falls symmetrically with respiration. Chest wall is nontender to palpation. GASTROINTESTINAL: Abdomen is soft, nontender, nondistended with bowel sounds in all 4 quadrants. GENITOURINARY: Irene is patent to bedside bag with clear yellow urine draining. NEUROLOGIC: She is alert oriented x3. SKIN: Warm and dry. She does have a dressing to her left knee that is dry and intact. LABS: Hemoglobin is 12, hematocrit 37.6. Sodium 127, potassium 7.4, BUN 31, creatinine 1.3 with a glucose of 119. ASSESSMENT AND PLAN: 1. Hyperkalemia. 2. Acute kidney injury. 3. Hyponatremia. 4. Hypotension. 5. Bradycardia. 6. Status post left knee replacement. 7. Hypothyroid. 8. History of hypertension. 9. Possible sepsis due to UTI? PLAN: The patient will be placed on telemetry. At this time she will be transferred to ICU. She has is receiving a 500 mL bolus. We will give a total of a 2 L bolus and reassess. We will consult Dr. Conde in Nephrology. Obtain a renal ultrasound as well as a chest x-ray, albuterol 25 mg treatment x1, 1 amp of sodium bicarb, 1 g of calcium gluconate, 10 units of regular insulin IV, an amp of D50. Of note she was previously given Kayexalate by Dr. Lloyd. We will review her medications and hold any renal toxic or potassium holding medications. We will check a TSH as well as a random urine creatinine, random urine protein. We will check urine sodium along with urine eosinophils. We will obtain a sedimentation rate, SPEP, check a renal profile q.4 hours x3 starting at 1 o'clock and a daily renal profile. Further treatments pending hospital course and discussion with Dr Hoyt Patient seen and examined by me face to face, all the laboratory, vitals signs and images were reviewed, Patient has been admitted and a knee replacement has been done, creatinine is elevated compare with baseline, her urine looks cloudy, she is hypotensive and placed on pressors, likely sepsis, her potassium level was elevated and treated, nephrology will be on board, we will put her on IV fluids as well as antibiotics, patient will be monitor in the ICU, urine and blood culture, I agree with the rest of the PACKAGE LINER's assessment and plan, Michael Bardales MD. Dictated by PRANAV Johnson for Michael Jaeger MD cc: PRANAV Johnson MD [facility] Riehl, MD [facility]
--- NOTE | 2018-10-31 12:02 | NEPHROLOGY CONSULTATION ---
DATE: 10/31/2018 REASON FOR CONSULTATION: Hyperkalemia. HISTORY OF PRESENT ILLNESS: Ms. Salas is a 78-year-old white female. She had left total knee arthroplasty yesterday by Dr. Lloyd. She has a history of right total knee arthroplasty in the past. 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 Her creatinine on presentation was 1.7, and the most recent previous creatinine in our system was 0.8. Her nephrectomy happened in 2018. Her surgical case was uneventful and lasted from approximately 9:30 until approximately 11:30. Her lowest systolic blood pressure was greater than 100. She received no supplemental medications in the operating room. After returning to the floor she has been in bed and has not ambulated yet. Her pain has been managed with Dilaudid and Oxy IR as well as Ultram. She did receive Celebrex 200 mg b.i.d. as well as Prinivil, but this medication has been withheld and not administered. Her last dose was yesterday. She tolerated her surgery well and had no immediate complications. She states that she did have decreased appetite last evening and some nausea but no vomiting. No diarrhea. No abdominal pain. No chills, fever, shortness of breath etc. LABORATORY DATA: Her initial laboratory data disclosed potassium of 5.9. This morning her potassium was 7.4 so we were consulted for assistance. PAST MEDICAL HISTORY: As above. CURRENT MEDICATIONS: 1. Colace. 2. Dilaudid. 3. Normal saline. 4. Oxy-IR. 5. Ultram. 6. Zofran. 7. Neurontin. 8. Celebrex. 9. Pepcid. 10. Pravachol. 11. Zanaflex. 12. Synthroid. 13. Aspirin. 14. Prinivil (held). 15. Toprol (held). ALLERGIES: Morphine. SOCIAL HISTORY: No alcohol or tobacco. She is . FAMILY HISTORY: Otherwise noncontributory. REVIEW OF SYSTEMS: Otherwise noncontributory. PHYSICAL EXAMINATION: Vital Signs: Blood pressure 84/60, heart rate 67, respiration 18, afebrile. Generally: No acute distress. Skin: Warm and dry. Somewhat pale. HEENT: Conjunctivae are pink and moist. Pupils are equal and round. Oropharynx is somewhat dry but normal tongue, normal teeth. Neck: Supple. Trachea is midline. Neck veins are approximately 6 cm of water. Heart: PMI nondisplaced. Regular rate and rhythm without gallops, murmurs, rubs. Lungs: Have equal breath sounds. No crackles or wheezes. Abdomen: Soft, nontender. Bowel sounds are present. Extremities: Have no edema, clubbing, or cyanosis. There is a dressing on the left knee. Well healed surgical scar on the right knee. IMPRESSION: 1. Hyperkalemia. Likely a consequence of medications plus poor distal tubular sodium delivery in the n.p.o. state. She has received IV calcium and IV bicarbonate. She is currently receiving 25 mg dose of albuterol and insulin with D50. She has also received a single dose of Kayexalate. I will repeat dosing with insulin, D50, albuterol. Also Lokelma 10 g x3 doses. Her EKG does have some peaked T-waves but no QRS or CT interval prolongation. Normal sinus rhythm. cc: MD Isai Chiu MD MTDD
[2018-10-31 12:52] LABS: URINE SOURCE CATH
[2018-10-31 12:54] LABS: UR CREAT RANDOM 116.7 mg/dL (11-20); UR PROT RANDOM 45.4 mg/dL
[2018-10-31 12:55] LABS: BILIRUBIN URINE NEGATIVE (NEGATIVE); BLOOD URINE NEGATIVE (NEGATIVE); COLOR YELLOW; GLUCOSE URINE NEGATIVE (NEGATIVE); KETONE URINE NEGATIVE (NEGATIVE); LEUKOCYTES URINE LARGE (NEGATIVE); NITRITE URINE NEGATIVE (NEGATIVE); PROTEIN URINE 30 mg/dL (NEGATIVE); SP GRAVITY URINE 1.021; TURBIDITY URINE HAZY (CLEAR); UROBILINOGEN URINE NORMAL (NORMAL)
[2018-10-31 12:57] LABS: UR EPITHELIAL CELLS <10 /HPF (<10); URINE BACTERIA NEGATIVE /HPF; URINE RBC <10 /HPF (<10); URINE WBC TNTC /HPF (<10)
[2018-10-31] MEDS ORDERED: LOKELMA POWDER PACKET PO SCH (13:00)
[2018-10-31] MEDS: LEVOPHED 8 MG in D5 1/2 NS 250 ML IV SCH (13:41)
[2018-10-31 14:31] LABS: ALBUMIN 3.4 g/dL (3.5-5.0); CALCIUM 7.5 mg/dL (8.8-10.2); CREATININE 1.5 mg/dL (0.5-0.9); PHOSPHORUS 4.1 mg/dL (2.7-4.5); POTASSIUM 4.5 mmol/L (3.5-5.1)
[2018-10-31] MEDS ORDERED: ZOSYN 2.25 GM in NS 50 ML IV SCH (15:00)
--- NOTE | 2018-10-31 16:09 | Diag Imaging Result Doc PS360 ---
EXAM: US RENAL 2 (RETROPER) COMPLETE 10/31/2018 HISTORY: decreased renal function TECHNIQUE: Renal ultrasound COMMENT: Study is suboptimal due to the patient's body habitus. The left kidney is without evidence of hydronephrosis or mass. It measures 10.5 x 5.4 x 5.7 cm. There is a Irene catheter in the bladder. The right kidney is surgically absent. IMPRESSION: No evidence of obstructive uropathy. Electronically signed by Thomas Strange 10/31/2018 4:07 PM
[2018-10-31 17:10] LABS: ALBUMIN 3.5 g/dL (3.5-5.0); CALCIUM 7.4 mg/dL (8.8-10.2); CREATININE 1.5 mg/dL (0.5-0.9); PHOSPHORUS 3.8 mg/dL (2.7-4.5); POTASSIUM 4.5 mmol/L (3.5-5.1)
[2018-10-31] MEDS: PRAVACHOL PO SCH (20:16)
[2018-10-31] MEDS: PEPCID PO SCH (20:17)
[2018-10-31] MEDS: ZOSYN 2.25 GM in NS 50 ML IV SCH (20:28)
[2018-11-01] MEDS: DILAUDID IV PRN (01:13)
[2018-11-01] MEDS: TYLENOL PO SCH ×4 (03:14→20:22)
[2018-11-01] MEDS: ZOSYN 2.25 GM in NS 50 ML IV SCH ×4 (03:14→20:22)
[2018-11-01] MEDS: NS 1,000 ML IV SCH ×2 (03:15→04:32)
[2018-11-01 05:29] LABS: BASO# 0.02 X1000 (0.0-0.2); BASO% 0.2 % (0.0-0.8); EOS# 0.17 X1000 (0.0-0.7); EOS% 1.8 % (0.0-10.0); HEMATOCRIT 33.4 % (37.0-47.0); HEMOGLOBIN 10.5 g/dL (12.0-16.0); IMM GRAN# 0.02 X1000 (0.0-0.04); IMM GRAN% 0.2 % (0.0-0.5); LYMPH# 0.77 X1000 (1.2-3.4); MCH 29.4 PG (27-31); MCHC 31.4 g/dL (33-37); MCV 93.6 FL (81-99); MONO# 1.93 X1000 (0.11-0.59); MONO% 20.2 % (1.7-9.3); MPV 9.5 FL (7.4-10.4); NEUT# 6.66 X1000 (1.4-6.5); NEUT% 69.6 % (42.2-75.2); PLT 401 X1000 (130-400); RBC 3.57 XMIL (4.2-5.4); RDW 15.7 % (11.5-14.5); WBC 9.57 X1000 (4.8-10.8)
[2018-11-01 05:58] LABS: ALBUMIN 3.1 g/dL (3.5-5.0); CALCIUM 7.3 mg/dL (8.8-10.2); CREATININE 1.2 mg/dL (0.5-0.9); PHOSPHORUS 3.7 mg/dL (2.7-4.5); POTASSIUM 5.4 mmol/L (3.5-5.1)
[2018-11-01] MEDS: LEVOPHED 8 MG in D5 1/2 NS 250 ML IV SCH (06:10)
[2018-11-01] MEDS: SYNTHROID PO SCH (06:10)
[2018-11-01 06:57] LABS: LYMPHS 10 % (21-51); MONO 8 % (1-9); SEGS 76 % (42-75)
[2018-11-01] MEDS: PERIDEX MT SCH ×2 (08:03→20:22)
[2018-11-01] MEDS: ZYVOX 600 MG/D5W 600 MG/300 ML IVPB IV SCH ×2 (08:03→19:20)
[2018-11-01] MEDS: COLACE PO SCH ×2 (08:04→20:23)
[2018-11-01] MEDS: ASPIRIN PO SCH (08:04)
[2018-11-01] MEDS: NEURONTIN PO SCH ×3 (08:04→20:22)
--- NOTE | 2018-11-01 08:54 | PROGRESS NOTE ---
DATE: 11/01/2018 SUBJECTIVE: This patient is sitting on the bed. She is tolerating her food. It looks like she has been having recurrent urinary tract infection and she was on her second round of antibiotics before coming to the hospital for surgery. She is still on pressors. Urine output is improving. Potassium is a little bit elevated at 5.4. BUN and creatinine are trending down. We will continue to monitor for now. Nephrology Department on board. She has some redness on her left lower extremity. That as per the patient is chronic but since she had a recent surgery and she is having signs of septic shock, I will put this patient on Zyvox to cover gram positive. OBJECTIVE: VITAL SIGNS: Temperature 98.5 degrees, pulse 95, respiratory rate 13, blood pressure 103/63, oxygen saturation 98 on nasal cannula 4 L. HEENT: Head normocephalic, no trauma. PERRLA. NECK: Supple. No JVD. Central trachea. CHEST: Some crepitus at the bases. Otherwise clear to auscultation. No wheezing. No rales. ABDOMEN: Soft. Minimally distended, protuberant. Positive bowel sounds. NEUROLOGICAL: She is alert and oriented x3. No focal deficits. SKIN: She has a dressing to her left knee and some redness on that leg. LABORATORY DATA: WBC 9.5, hemoglobin 10.5, hematocrit 33.4, platelets 401,000. Sodium 133, potassium 5.4, chloride 108, bicarbonate 17, BUN 25, creatinine 1.2, glucose 122, calcium 7.3, albumin 3.1. ASSESSMENT AND PLAN: 1. Likely acute kidney injury. Kidney function in 2017 was completely normal and she came in with 1.7 of creatinine. I am not quite sure if this is new or old for her. I will get the records from August 2016. Urine output is adequate and the BUN and creatinine are trending down. We will continue to monitor. 2. Hyperkalemia, resolved. Today, the potassium level is still elevated but we will continue to monitor. 3. Hyponatremia, stable. 4. Likely septic shock. She is still on pressors. This is likely due to urinary tract infection. I do not think her leg is infected. She has some redness on her legs, but as per the patient, this is chronic. 5. Bradycardia, resolved. We held her metoprolol and her blood pressure medication due to hypotension. 6. Status post left knee replacement, aware. 7. Hypothyroidism. Continue same management. 8. History of hypertension, aware. Critical care time: 35 minutes. cc: MD Isai Bird MD
[2018-11-01] MEDS ORDERED: LOKELMA POWDER PACKET PO SCH (09:00)
[2018-11-01] MEDS: ULTRAM PO SCH ×3 (09:55→21:25)
[2018-11-01] MEDS: SODIUM BICARBONATE PO SCH ×2 (09:55→20:22)
--- NOTE | 2018-11-01 11:00 | ORTHOPAEDICS PROGRESS NOTE ---
DATE: 11/01/2018 SUBJECTIVE DATA: Ms. Salas is seen postop her left knee replacement. She reports she is having some shaking and tremors at this time. She reports her pain is a 5/10 on her left knee. OBJECTIVE DATA: The patient is sitting comfortably in the bed, eating her breakfast. She does exhibit some tremors. There is some swelling noted to the left lower extremity. The incision site is clean and dry. The drain has been removed. There are good pedal pulses and there is good sensation to the left lower extremity. ASSESSMENT: Degenerative joint disease, left knee with total knee arthroplasty and hyperkalemia. PLAN: We will plan to monitor hospitalist progress while she is in the hospital. She will be discharged home when her potassium stabilizes. She will need to follow up in office in roughly 10 days to get her laura removed. Dictated by PRANAV Perez for Isai Lloyd MD cc: PRANAV Perez MD
--- NOTE | 2018-11-01 13:09 | NEPHROLOGY PROGRESS NOTE ---
DATE: 11/01/2018 TIME SEEN: 0620 hours. SUBJECTIVE: Ms. Salas is resting quietly in bed; head of the bed is elevated. She is more awake and alert today. She does have complaints of left knee pain. OBJECTIVE: Vital Signs: Temperature 98.5 degrees, blood pressure 110/66, heart rate 94, respirations 12. She is on 2 L nasal cannula. Last recorded saturation 95%. She has had 3871 in, 1970 out. LABORATORY DATA: Sodium 133, potassium 5.4, chloride 108, CO2 17, BUN 25, creatinine 1.2, glucose 112. Her anion gap is 8. Her calcium is 7.3, phosphorus 3.7, albumin is 3.1. White count 9.5, hemoglobin 10.5, hematocrit 33.4 with a platelet count of 401. PHYSICAL EXAMINATION: General: This is a 78-year-old, white female resting quietly in bed. She appears in no acute distress. Skin: Warm and dry. HEENT: Normocephalic, atraumatic. Conjunctiva is pink. Mucous membranes are moist. Neck: Supple. Trachea midline. She does have trace JVD approximately 6-8 cm. Lungs: Clear to auscultation bilaterally, equal excursion. She is on O2. Abdomen: Soft, nontender. Positive bowel sounds. Cardiovascular: She is regular rate and rhythm without murmur or gallop. Genitourinary: Not inspected. Adequate urine out to Irene catheter. Extremities: Have left knee dressing, nondraining healed surgical scar on the right. 1+ edema bilateral. Neurological: She is more awake and alert to person and to place. ASSESSMENT AND PLAN: 1. Chronic kidney disease stage III. Patient's BUN and creatinine remain stable at her baseline. 2. Hyperkalemia. The patient has responded nicely to intravenous fluids and Lokelma intermittently with intravenous calcium bicarbonate, Kayexalate, albuterol, insulin and D 50. We will give another dose of Lokelma today. Her potassium is at 5.4. We will stop her intravenous fluids, re-evaluate her labs in the morning. No changes to her electrocardiogram. 3. Acid-base balance. The patient is mildly metabolic acidotic. We will add sodium bicarbonate orally to her medications. 4. Left total knee arthroplasty. This is followed by Dr. Lloyd. I would like to thank you for allowing us to follow with this patient. Dictated by PRANAV Madden for Bethel Conde MD Face to face encounter, data reviewed, discussed with Francisco Hyde on 11/01/18. I agree with the above assessment and plan of care. cc: PRANAV Madden MD [facility] Riehl, MD [facility]
[2018-11-01] MEDS ORDERED: DILAUDID IV ONE (18:12)
[2018-11-01] MEDS: ZANAFLEX PO SCH (20:22)
[2018-11-01] MEDS: PRAVACHOL PO SCH (20:23)
[2018-11-01] MEDS: PEPCID PO SCH (20:23)
[2018-11-02] MEDS: TYLENOL PO SCH ×4 (03:51→20:43)
[2018-11-02] MEDS: ULTRAM PO SCH ×4 (03:51→21:09)
[2018-11-02] MEDS: ZOSYN 2.25 GM in NS 50 ML IV SCH (03:52)
[2018-11-02 05:09] LABS: BASO# 0.03 X1000 (0.0-0.2); BASO% 0.3 % (0.0-0.8); EOS# 0.32 X1000 (0.0-0.7); EOS% 3.7 % (0.0-10.0); HEMATOCRIT 31.8 % (37.0-47.0); HEMOGLOBIN 9.9 g/dL (12.0-16.0); IMM GRAN# 0.02 X1000 (0.0-0.04); IMM GRAN% 0.2 % (0.0-0.5); LYMPH# 0.56 X1000 (1.2-3.4); LYMPH% 6.4 % (20.5-51.1); MCH 29.4 PG (27-31); MCHC 31.1 g/dL (33-37); MCV 94.4 FL (81-99); MONO# 1.39 X1000 (0.11-0.59); MPV 9.7 FL (7.4-10.4); NEUT# 6.37 X1000 (1.4-6.5); NEUT% 73.4 % (42.2-75.2); PLT 315 X1000 (130-400); RBC 3.37 XMIL (4.2-5.4); RDW 16.1 % (11.5-14.5); WBC 8.69 X1000 (4.8-10.8)
[2018-11-02 05:53] LABS: ALBUMIN 2.7 g/dL (3.5-5.0); CREATININE 0.9 mg/dL (0.5-0.9); PHOSPHORUS 2.3 mg/dL (2.7-4.5)
[2018-11-02] MEDS: SYNTHROID PO SCH (06:01)
[2018-11-02] MEDS: DILAUDID IV PRN ×2 (06:05→22:47)
[2018-11-02] MEDS: ZYVOX 600 MG/D5W 600 MG/300 ML IVPB IV SCH ×2 (07:21→18:46)
[2018-11-02] MEDS ORDERED: LASIX IV ONE (09:00)
[2018-11-02] MEDS: PERIDEX MT SCH ×2 (09:25→20:42)
[2018-11-02] MEDS: ZOSYN 3.375 GM in NS 50 ML IV SCH ×3 (09:25→21:09)
[2018-11-02] MEDS: MIRALAX PO SCH (09:25)
[2018-11-02] MEDS: SODIUM BICARBONATE PO SCH ×2 (09:25→20:42)
[2018-11-02] MEDS: TOPROL XL PO SCH (09:26)
[2018-11-02] MEDS: COLACE PO SCH ×2 (09:26→20:43)
[2018-11-02] MEDS: NEURONTIN PO SCH ×3 (09:26→20:43)
[2018-11-02] MEDS: ZANAFLEX PO SCH ×2 (09:26→20:43)
[2018-11-02] MEDS: DIFLUCAN PO SCH (09:26)
[2018-11-02] MEDS: ASPIRIN PO SCH (09:26)
[2018-11-02] MEDS: ZOFRAN IV PRN (10:10)
--- NOTE | 2018-11-02 10:41 | PROGRESS NOTE ---
DATE: 11/02/2018 SUBJECTIVE: This patient is sitting on the bed, she is tolerating her food. As per the patient, she was taking antibiotics at the moment of admission, Bactrim for urinary tract infection. Pressors were stopped yesterday in the afternoon, but I noticed some low blood pressure during the night, systolic blood pressure in the 70s. At this moment, is in the 100s and 90s. BUN and creatinine improved, urine output is around 2.4 L. She is still a little bit tachycardic. Bicarbonate level is 20, but she is getting treatment by mouth with bicarbonate as well. No bowel movement so far. I will start this patient on MiraLAX. She was having symptomatic urinary tract infection before coming to the hospital and actually like I mentioned before she was taking treatment. I have two urine cultures from the and from 10/31/2018, and both of them showed yeast, so I will add fluconazole to her medications. OBJECTIVE: Vital Signs: Temperature 97.8 degrees, pulse 104, respiratory rate 13, blood pressure 93/66, oxygen saturation 97% on 3 L of nasal cannula. HEENT: Head normocephalic no trauma. PERRLA. Neck: Supple. No JVD. No masses. Central trachea. Chest: Some crepitus at the bases otherwise clear to auscultation. Decreased breath sounds globally. Abdomen: Soft, minimally distended, protuberant. Positive bowel sounds. Neurological: This patient is alert and oriented x3. No focal deficits. Skin: She has a dressing to her left knee with some redness around, but does not look infected. Also, she has some redness on that leg, which is chronic as per the patient. LABORATORY: WBC 8.6, hemoglobin 9.9, hematocrit 31.8, platelets 315,000. Sodium 131, potassium 5, chloride 105, bicarbonate 20, BUN 19, creatinine 0.9, glucose 96 calcium 7, albumin 2.7. ASSESSMENT AND PLAN: 1. Acute kidney injury. Kidney function in 2017 was completely normal and today the BUN and creatinine are within normal limits, BUN 19, creatinine 0.9. This could be multifactorial due to septic shock and treatment with Bactrim prior to coming to the hospital. Also this patient has been treated for urinary tract infection. As per the patient she was taking Bactrim when she was admitted. 2. Hyperkalemia, resolved. We will continue to monitor. Nephrology department on board. 3. Hyponatremia. stable. 4. Septic shock, pressors were stopped yesterday during the afternoon, likely due to urinary tract infection. I do not think her leg is infected, but she has some redness which as per the patient could be chronic, but we will continue with broad spectrum antibiotics. Her urine culture showed yeast twice, so I have started this patient on fluconazole. 5. Item bradycardia, resolved. We held her metoprolol and her blood pressure medications due to hypotension. 6. Status post left knee replacement, aware. 7. Hypothyroidism continue with same management. 8. History of hypertension, aware. CRITICAL CARE TIME: 30 minutes. cc: MD Isai Bird MD
[2018-11-02] MEDS: LOKELMA POWDER PACKET PO SCH (11:15)
--- NOTE | 2018-11-02 12:42 | ORTHOPAEDICS PROGRESS NOTE ---
DATE: 11/02/2018 SUBJECTIVE: Ms. Salas is seen status post her left total knee arthroplasty. She reports her knee is still doing well at this time. She states that she is tired of being in the hospital. She reports her pain is a 4/10 at this time. OBJECTIVE: The bandages on left lower extremity are clean and dry. There are good pedal pulses. There is some swelling noted to the left lower extremity. [place] are intact. There is negative Homans sign. There is good capillary refill in the toes. There is no drainage. ASSESSMENT: Degenerative joint disease, left knee, with left total knee arthroplasty and hyperkalemia. PLAN: We will continue to monitor Ms. Salas while she is in the hospital. The plan is to hopefully get her laura removed within 10 days. She will need to keep working with physical therapy while she is here and on an outpatient basis. We will check back on her tomorrow. Dictated by PRANAV Perez for Isai lLoyd MD cc: PRANAV Perez MD
--- NOTE | 2018-11-02 15:40 | NEPHROLOGY PROGRESS NOTE ---
DATE: 11/02/2018 SUBJECTIVE: She is feeling better today. No nausea or other complaints. OBJECTIVE: Vital Signs: Blood pressure 93/63, heart rate 74, respirations 10. Afebrile. General: No acute distress. Skin: Warm and dry. Neck: Neck veins are not distended. 6 cm. No hepatojugular reflux. Heart: Regular. No gallops. Lungs: Equal. No crackles. Abdomen: Benign. Extremities: Trace edema. No clubbing or cyanosis. IMPRESSION: 1. Acute kidney injury. Creatinine is down to 1.0. 2. Hyperkalemia, resolved. 3. Nothing further to add so I will sign off today, but if I can be of further assistance please do not hesitate to call me back. cc: MD Isai Chiu MD
[2018-11-02] MEDS: PRAVACHOL PO SCH (20:43)
[2018-11-02] MEDS: PEPCID PO SCH (20:43)
[2018-11-03] MEDS ORDERED: NS 1,000 ML IV SCH (03:15)
[2018-11-03] MEDS: ZOSYN 3.375 GM in NS 50 ML IV SCH ×4 (03:21→20:51)
[2018-11-03] MEDS: TYLENOL PO SCH ×5 (03:21→20:49)
[2018-11-03] MEDS: ULTRAM PO SCH ×4 (03:28→20:47)
[2018-11-03] MEDS: SYNTHROID PO SCH (06:10)
[2018-11-03 06:16] LABS: BASO# 0.02 X1000 (0.0-0.2); BASO% 0.2 % (0.0-0.8); EOS% 3.1 % (0.0-10.0); HEMATOCRIT 35.4 % (37.0-47.0); HEMOGLOBIN 10.9 g/dL (12.0-16.0); IMM GRAN# 0.02 X1000 (0.0-0.04); IMM GRAN% 0.2 % (0.0-0.5); LYMPH# 0.92 X1000 (1.2-3.4); LYMPH% 9.4 % (20.5-51.1); MCH 29.4 PG (27-31); MCHC 30.8 g/dL (33-37); MCV 95.4 FL (81-99); MONO# 1.42 X1000 (0.11-0.59); MONO% 14.6 % (1.7-9.3); MPV 9.7 FL (7.4-10.4); NEUT# 7.07 X1000 (1.4-6.5); NEUT% 72.5 % (42.2-75.2); PLT 359 X1000 (130-400); RBC 3.71 XMIL (4.2-5.4); RDW 16.4 % (11.5-14.5); WBC 9.75 X1000 (4.8-10.8)
[2018-11-03] MEDS: ZYVOX 600 MG/D5W 600 MG/300 ML IVPB IV SCH ×2 (06:31→20:15)
[2018-11-03 06:47] LABS: ALBUMIN 2.9 g/dL (3.5-5.0); CALCIUM 7.8 mg/dL (8.8-10.2); CREATININE 1.2 mg/dL (0.5-0.9); POTASSIUM 4.6 mmol/L (3.5-5.1)
[2018-11-03] MEDS ORDERED: FOSAMAX PO SCH (07:00)
--- NOTE | 2018-11-03 07:15 | Diag Imaging Result Doc PS360 ---
EXAM: CHEST-PORTABLE HISTORY: dyspnea TECHNIQUE: Portable chest single view COMPARISON: 10/31/2018 FINDINGS: Poor inspiratory effort. The heart is borderline mildly prominent. There is central vascular distention. No consolidation. Questionable trace pleural fluid. IMPRESSION: Central vascular distention which is more prominent than on the prior study. Electronically signed by Silas Casillas 11/03/2018 7:12 AM
--- NOTE | 2018-11-03 08:48 | ORTHOPAEDICS PROGRESS NOTE ---
DATE: 11/03/2018 OBJECTIVE: The patient is somnolent. Her left lower extremity is in CPM machine. Her wound looks good. There are no signs or symptoms of infection. Calf is soft. Her hemoglobin is 10.9, hematocrit 35.4. IMPRESSION: Postoperative day #4 status post left total knee arthroplasty. PLAN: At this point, patient will be maintained in CPM machine. We will continue with CPM for range of motion exercises. The patient will continue with recurrent medical per the hospitalist and nephrology. cc: MD Isai Beasley MD
[2018-11-03] MEDS: SODIUM BICARBONATE PO SCH ×2 (09:33→20:48)
[2018-11-03] MEDS: ASPIRIN PO SCH (09:34)
[2018-11-03] MEDS: COLACE PO SCH ×2 (09:35→20:46)
[2018-11-03] MEDS: PERIDEX MT SCH ×2 (09:35→20:49)
[2018-11-03] MEDS: MIRALAX PO SCH (09:35)
[2018-11-03] MEDS: DIFLUCAN PO SCH (09:35)
--- NOTE | 2018-11-03 10:09 | PROGRESS NOTE ---
DATE: 11/03/2018 SUBJECTIVE: This patient is resting comfortably in bed. She is sleep but arousable. She is oriented x3 but she feels weak. She had an episode of low blood pressure during the night and she was placed on pressors, likely this is related to medications, so I will stop the hydromorphone completely, and I will keep her on p.o. treatment. We are going to continue holding the metoprolol succinate. She has been placed on normal saline, she will receive 1 L, and monitor. OBJECTIVE: Vital Signs: Temperature 98.0, pulse 86, respiratory rate 13, blood pressure 99/78, oxygen saturation 97 on 3 L of nasal cannula. HEENT: Head normocephalic. No trauma. PERRLA. Neck: Supple. No JVD. No masses. Central trachea. Chest: Decreased breath sounds globally with some crepitus at the bases. No wheezing. No rales. Abdomen: Soft, protuberant, positive bowel sounds. Extremities: She has some lower extremity edema. She has a dressing on the left knee and some redness around her knee wound but does not look infected. She also has some redness on that leg, which as per the patient is chronic. LABORATORY: WBC 9.7, hemoglobin 10.9, hematocrit 35.4, platelet 359. Sodium 131, potassium 4.6, chloride 99, bicarbonate 22, BUN 21, creatinine 1.2, glucose 92, calcium 7.8, phosphorus 3, albumin 2.9. ASSESSMENT AND PLAN: 1. Acute kidney injury. Kidney function in 2017 was completely normal. Yesterday, her BUN and creatinine were within normal limits, BUN 19, creatinine 0.9. Her acute kidney injury could be multifactorial due to septic shock, treated with Bactramycin that she was getting inclusive when she came to the hospital for surgery. She has been treated for a urinary tract infection. Her BUN and creatinine increased today compared with yesterday, likely because of an episode of hypotension that she had during the night. She was placed on pressors for a moment but then was stopped. I have discontinued the Dilaudid. I have discontinued the high dose of oxycodone. I will continue with Tramadol. We need to avoid nephrotoxic medications. 2. Septic shock. Vasopressors were stopped a couple of days ago but yesterday night she had an episode of hypotension likely due to medications. She was placed on pressors for a moment and then it was stopped. At this moment, she is not on pressors. Blood pressure seems to be more stable. I will stop the IV hydromorphone. 3. Hyperkalemia, resolved. Will continue to monitor. 4. Hyponatremia, stable. 5. Mild bradycardia, resolved. We are holding her metoprolol due to her low blood pressure. 6. Status post left knee replacement, aware. 7. Likely urinary tract infection. She was treated with Bactrim prior to coming to the hospital and inclusive at the day of admission she was still on that medication. Urine culture here showed yeast x2 in 2 different days. I have placed this patient on treatment for fungal urinary tract infection. 8. Hypothyroidism. Continue with the same management. 9. Hypertension, aware. Actually, this patient's blood pressure has been borderline low. Will hold the metoprolol and also her JULIANNA inhibitor. cc: MD Isai Bird MD
[2018-11-03] MEDS: LOKELMA POWDER PACKET PO SCH (11:23)
[2018-11-03] MEDS: PEPCID PO SCH (20:46)
[2018-11-03] MEDS: PRAVACHOL PO SCH (20:49)
[2018-11-04] MEDS: ULTRAM PO SCH ×2 (00:04→04:11)
[2018-11-04] MEDS: ZOSYN 3.375 GM in NS 50 ML IV SCH ×5 (00:05→22:07)
[2018-11-04] MEDS: TYLENOL PO SCH ×2 (03:11→09:09)
[2018-11-04] MEDS: SYNTHROID PO SCH (06:02)
[2018-11-04] MEDS: ZYVOX 600 MG/D5W 600 MG/300 ML IVPB IV SCH ×2 (06:03→07:40)
[2018-11-04 06:24] LABS: BASO# 0.02 X1000 (0.0-0.2); BASO% 0.3 % (0.0-0.8); EOS% 3.9 % (0.0-10.0); HEMOGLOBIN 10.2 g/dL (12.0-16.0); IMM GRAN# 0.02 X1000 (0.0-0.04); IMM GRAN% 0.3 % (0.0-0.5); LYMPH% 11.6 % (20.5-51.1); MCH 29.6 PG (27-31); MCHC 30.9 g/dL (33-37); MCV 95.7 FL (81-99); MONO# 1.19 X1000 (0.11-0.59); MONO% 15.4 % (1.7-9.3); MPV 9.8 FL (7.4-10.4); NEUT# 5.31 X1000 (1.4-6.5); NEUT% 68.5 % (42.2-75.2); PLT 355 X1000 (130-400); RBC 3.45 XMIL (4.2-5.4); WBC 7.74 X1000 (4.8-10.8)
[2018-11-04 07:16] LABS: CALCIUM 8.1 mg/dL (8.8-10.2); CREATININE 0.9 mg/dL (0.5-0.9); PHOSPHORUS 2.5 mg/dL (2.7-4.5); POTASSIUM 4.9 mmol/L (3.5-5.1)
[2018-11-04] MEDS ORDERED: SODIUM PHOSPHATE 20 MMOL in NS 250 ML IV ONE (08:27)
[2018-11-04] MEDS ORDERED: ULTRAM PO SCH (08:30)
--- NOTE | 2018-11-04 08:52 | PROGRESS NOTE ---
DATE: 11/04/2018 SUBJECTIVE: This patient is resting comfortably in bed but she is confused. She is able to say her name but she is repeating the questions that I have been answering, and she repeats that multiple times. I have stopped the IV narcotics. I will continue with the same management. Blood pressure seems to be better. She has been off pressors since 3 a.m. from yesterday. We will try to communicate with the family or the pharmacy to see if she has been on narcotics at home continuously. I got listed on her home medications [place] 10 every 4 hours but I do not have too much information. We are still holding the metoprolol. Blood pressure has been stable. OBJECTIVE: Vital Signs: Temperature 98 degrees, pulse 89, respiratory rate 12, blood pressure 129/77, oxygen saturation 97% on nasal cannula at 3 L. HEENT: Head normocephalic. No trauma. PERRLA. Neck: Supple. No JVD. No masses. Central trachea. Chest: Decreased breath sounds globally with some crepitus at the bases. No wheezing. No rales. Abdomen: Soft, protuberant. Positive bowel sounds. Extremities: Trace edema. No clubbing. No cyanosis. She has a dressing at the level of the left knee with mild redness but it does not look infected. She also has some redness on her legs which apparently is chronic. Laboratory: WBCs 7.7, hemoglobin 10.2, hematocrit 33, platelets 355,000. Sodium 132, potassium 4.9, chloride 99, bicarbonate 22, BUN 17, creatinine 0.9, glucose 97, calcium 8.1, albumin 3. ASSESSMENT AND PLAN: 1. Septic shock. Vasopressors were stopped yesterday around 3 a.m. as per the nurse. I think the episode of hypotension was related to medications, narcotics intravenous which I have stopped already. At this moment, she is not on pressors. Blood pressure seems to be stable. Continue with antibiotics. 2. Acute kidney injury. Her kidney function in 2017 was completely normal. Creatinine today is 0.9 and BUN 17, stable urine output. She is tolerating oral intake a little bit. We will continue with the same management. 3. Hyperkalemia, resolved. 4. Hyponatremia, stable. 5. Mild bradycardia in the 50s upon admission, resolved. Metoprolol has been stopped already and heart rate has been stable. 6. Status post left knee replacement, aware. 7. Likely urinary tract infection. She was treated. She was getting treatment with Bactrim when she was admitted and she had symptoms a few days ago. Urine culture here showed yeast x2. She has been placed on fluconazole already. 8. The patient has some redness on her legs, is also warm. As per the patient, this is chronic but since she has been having septic shock, I will continue with Zyvox for now. 9. Hypothyroidism. Continue with same management. 10. Hypertension. Aware. This patient's blood pressure has been more stable. We are holding her metoprolol and also her JULIANNA inhibitor. 11. Metabolic encephalopathy. This patient today is confused. It could be related to medication. It could be related to treatment in the intensive care unit and being, for a few days, basically isolated, possible baseline dementia, medication effect, and/or possible withdrawal symptoms due to narcotics that she was taking at home. We will try to get the family to find out if she was on home narcotics. CRITICAL CARE TIME: 35 minutes. cc: MD Isai Bird MD
[2018-11-04] MEDS: MIRALAX PO SCH (09:08)
[2018-11-04] MEDS: PERIDEX MT SCH ×2 (09:08→20:23)
[2018-11-04] MEDS: COLACE PO SCH ×2 (09:09→20:23)
[2018-11-04] MEDS: SODIUM BICARBONATE PO SCH ×2 (09:09→20:24)
[2018-11-04] MEDS: ASPIRIN PO SCH (09:09)
[2018-11-04] MEDS: LOVENOX SUBQ SCH (09:09)
[2018-11-04] MEDS: DIFLUCAN PO SCH (09:11)
--- NOTE | 2018-11-04 09:59 | ORTHOPAEDICS PROGRESS NOTE ---
DATE: 11/04/2018 The patient is a pleasant, 78-year-old female who is 5 days status post left total knee arthroplasty per Dr. Lloyd. She is currently resting comfortably. The patient is arousable. According to the daughter and with discussion with the patient, she will repeat questions asked of her. Her left lower extremity is in a CPM. Her wound looks good. There are no signs or symptoms of infection. Calf is soft. Her vital signs are stable. IMPRESSION: 1. Postoperative day #5 status post left total knee arthroplasty. 2. Acute kidney injury. PLAN: At this point, the patient will continue with her care per Dr. Hoyt and Dr. Conde. We will continue utilizing the CPM for range of motion. cc: MD Isai Beasley MD
--- NOTE | 2018-11-04 11:27 | Diag Imaging Result Doc PS360 ---
EXAM: CT HEAD W/O CONTRAST - 11/04/2018 HISTORY: encephalopathy TECHNIQUE: CT head without contrast COMPARISON: None. FINDINGS: There is no evidence of intracranial hemorrhage, mass effect, midline shift, or hydrocephalus. There are mild chronic appearing microvascular ischemic changes. There is no indication of recent infarct, although acute infarcts may not be immediately visible. There are postsurgical changes noted at the left mastoid/middle ear region. IMPRESSION: No visible acute intracranial abnormality. No hemorrhage or mass effect. This exam was performed using automated exposure control, adjustment of mA or kV according to patient size, and/or use of iterative reconstruction technique. Electronically signed by Anupam Dickey 11/04/2018 11:25 AM
[2018-11-04] MEDS: LOKELMA POWDER PACKET PO SCH (11:30)
[2018-11-04] MEDS ORDERED: TYLENOL PO SCH (12:45)
[2018-11-04] MEDS: ULTRAM PO PRN (13:17)
[2018-11-04] MEDS: NEURONTIN PO SCH ×2 (15:19→20:23)
[2018-11-04] MEDS: PEPCID PO SCH (20:23)
[2018-11-04] MEDS: PRAVACHOL PO SCH (20:23)
[2018-11-05] MEDS: ZOSYN 3.375 GM in NS 50 ML IV SCH ×4 (04:46→22:20)
[2018-11-05 06:40] LABS: HEMATOCRIT 30.5 % (37.0-47.0); HEMOGLOBIN 9.4 g/dL (12.0-16.0); MCH 29.9 PG (27-31); MCHC 30.8 g/dL (33-37); MCV 97.1 FL (81-99); MPV 9.2 FL (7.4-10.4); RBC 3.14 XMIL (4.2-5.4); RDW 15.6 % (11.5-14.5); WBC 6.09 X1000 (4.8-10.8)
[2018-11-05] MEDS: SYNTHROID PO SCH (06:57)
[2018-11-05 07:05] LABS: AGAP 9; ALBUMIN 2.8 g/dL (3.5-5.0); BUN 11 mg/dL (8-22); CALCIUM 8.3 mg/dL (8.8-10.2); CHLORIDE 101 mmol/L (98-107); COSMO 273; CREATININE 0.8 mg/dL (0.5-0.9); ESTIMATED GFR > 60; GLUCOSE 92 mg/dL (70-104); POTASSIUM 4.2 mmol/L (3.5-5.1); SODIUM 137 mmol/L (136-145); TCO2 27 mmol/L (25-35); TOTAL BILIRUBIN 0.41 mg/dL (0.20-1.00)
[2018-11-05 07:06] LABS: ALB/GLOB RATIO 1.3; ALKALINE PHOSPHATASE 86 U/L (32-104); GOT 8 U/L (10-30); GPT 5 U/L (10-36); PHOSPHORUS 2.2 mg/dL (2.7-4.5)
--- NOTE | 2018-11-05 08:07 | PROGRESS NOTE ---
DATE: 11/05/2018 SUBJECTIVE: The patient is resting comfortably in bed. She is complaining of headache. Today she is more oriented. She is able to say her name, date of . She knows she is in the hospital. She does not remember which one. She knows she is this is 2018. She is able to recognize family members at the bedside. She is extremely weak. Physical therapy on board. OBJECTIVE: Vital Signs: Temperature 99.5 degrees, pulse 103, respiratory rate 18, blood pressure 144/82, oxygen saturation 99 on 2 L of nasal cannula. HEENT: Head normocephalic, no trauma. PERRLA. Neck: Supple. No JVD. No masses. Central trachea. Chest: Decreased breath sounds globally with some crepitus at the bases. No wheezing. No rales. Abdomen: Soft, protuberant. Positive bowel sounds. Extremities: Trace edema. No clubbing, no cyanosis. She has a dressing at the level of the left knee with mild redness but it does not look infected. She also has some redness on her legs, which are chronic. LABORATORY: WBC 6, hemoglobin 9.4, hematocrit 30.5, platelets 372,000. Sodium 137, potassium 4.2, chloride 101, bicarbonate 27, BUN 11, creatinine 0.8, glucose 92, calcium 8.3, phosphorus 2.2, AST 8, ALT 5, alkaline phosphatase 86, albumin 2.8. ASSESSMENT AND PLAN: 1. Septic shock. She has been off of vasopressors for a couple of days. Blood pressure has been high since yesterday, so I will go ahead and put this patient back on her metoprolol to see how she does. I will not restart lisinopril due to her recent acute kidney injury, but we will restart this later. 2. Acute kidney injury, resolved. 3. Hyperkalemia, resolved. 4. Hyponatremia resolved. 5. Mild bradycardia upon admission, resolved. 6. Mild bradycardia in the 50s upon admission, resolved. Probably related to her metoprolol, which I will restart today and let us see how she does. 7. Status post left knee replacement, aware. 8. Likely urinary tract infection with a positive urine culture that showed yeast. She was getting treatment with Bactrim when she was admitted and had symptoms of urinary tract infection a few days ago. Urine culture showed yeast x2 and she has been placed on fluconazole. I will continue with antibiotics as well. 9. The patient has some redness on her legs, which is chronic. She was placed on Zyvox for a couple of days, but then it was stopped. Blood cultures are negative. 10. Hypothyroidism. Continue with same management. 11. Hypertension. I will restart this patient's metoprolol but I will hold the lisinopril for now due to her recent kidney injury. 12. Metabolic encephalopathy. This patient was confused yesterday. CT scan of the head did not show any visible acute abnormality. Today she seems to be better. She seems to be also extremely weak. Physical therapy has been consulted already. I offered them to go to a rehab center, but they want to go home with [facility]. For now, we will continue to monitor. She is having a headache. She will receive Tylenol. Discussed in detail with daughter at the bedside and also I talked about the patient with the nurse. They will provide Tylenol for the headache. As per the nurse, she did not receive any kind of pain medication during the night. cc: MD Isai Bird MD
[2018-11-05] MEDS: ASPIRIN PO SCH (08:08)
[2018-11-05] MEDS: PERIDEX MT SCH ×2 (08:08→22:23)
[2018-11-05] MEDS: SODIUM BICARBONATE PO SCH ×2 (08:09→22:20)
[2018-11-05] MEDS: DIFLUCAN PO SCH (08:09)
[2018-11-05] MEDS: TYLENOL PO PRN (08:09)
[2018-11-05] MEDS: COLACE PO SCH (08:10)
[2018-11-05] MEDS: TOPROL XL PO SCH (08:12)
[2018-11-05] MEDS ORDERED: ZOSYN ONE (09:30)
[2018-11-05] MEDS: NEURONTIN PO SCH ×3 (12:25→22:21)
[2018-11-05] MEDS: LOVENOX SUBQ SCH (12:25)
[2018-11-05] MEDS: MIRALAX PO SCH (12:25)
[2018-11-05] MEDS: LOKELMA POWDER PACKET PO SCH (12:25)
[2018-11-05] MEDS: ULTRAM PO PRN ×2 (16:07→22:21)
[2018-11-05] MEDS: PEPCID PO SCH (22:22)
[2018-11-05] MEDS: PRAVACHOL PO SCH (22:23)
[2018-11-06] MEDS: TYLENOL PO PRN ×2 (05:40→19:46)
[2018-11-06] MEDS: ZOSYN 3.375 GM in NS 50 ML IV SCH ×4 (05:40→21:52)
[2018-11-06] MEDS: SYNTHROID PO SCH ×2 (05:40→06:55)
[2018-11-06 06:10] LABS: BASO# 0.03 X1000 (0.0-0.2); BASO% 0.4 % (0.0-0.8); EOS% 4.4 % (0.0-10.0); HEMATOCRIT 30.1 % (37.0-47.0); HEMOGLOBIN 9.4 g/dL (12.0-16.0); IMM GRAN# 0.02 X1000 (0.0-0.04); IMM GRAN% 0.3 % (0.0-0.5); LYMPH# 1.09 X1000 (1.2-3.4); MCH 29.5 PG (27-31); MCHC 31.2 g/dL (33-37); MCV 94.4 FL (81-99); MONO% 23.5 % (1.7-9.3); MPV 9.2 FL (7.4-10.4); NEUT# 3.77 X1000 (1.4-6.5); NEUT% 55.4 % (42.2-75.2); PLT 382 X1000 (130-400); RBC 3.19 XMIL (4.2-5.4); RDW 15.3 % (11.5-14.5); WBC 6.81 X1000 (4.8-10.8)
[2018-11-06 06:31] LABS: AGAP 10; BUN 10 mg/dL (8-22); CALCIUM 8.5 mg/dL (8.8-10.2); CHLORIDE 97 mmol/L (98-107); COSMO 273; CREATININE 0.7 mg/dL (0.5-0.9); ESTIMATED GFR > 60; GLUCOSE 97 mg/dL (70-104); POTASSIUM 3.7 mmol/L (3.5-5.1); SODIUM 137 mmol/L (136-145); TCO2 30 mmol/L (25-35)
[2018-11-06 06:42] LABS: BANDS 2 % (0-1); EOS 5 % (1-10); LARGE PLATELETS OCCASIONAL; LYMPHS 13 % (21-51); MONO 13 % (1-9); SEGS 66 % (42-75)
[2018-11-06] MEDS: ULTRAM PO PRN ×3 (10:58→22:39)
[2018-11-06] MEDS: NEURONTIN PO SCH ×3 (10:58→21:51)
[2018-11-06] MEDS: PERIDEX MT SCH ×2 (10:59→21:52)
[2018-11-06] MEDS: TOPROL XL PO SCH (10:59)
[2018-11-06] MEDS: ASPIRIN PO SCH (10:59)
[2018-11-06] MEDS: SODIUM BICARBONATE PO SCH ×2 (10:59→21:51)
[2018-11-06] MEDS: LOVENOX SUBQ SCH (10:59)
[2018-11-06] MEDS: DIFLUCAN PO SCH (10:59)
[2018-11-06] MEDS: LOKELMA POWDER PACKET PO SCH (14:16)
[2018-11-06] MEDS: PRAVACHOL PO SCH (21:51)
[2018-11-06] MEDS: PEPCID PO SCH (21:52)
[2018-11-07] MEDS: SYNTHROID PO SCH ×2 (04:47→10:02)
[2018-11-07] MEDS: TYLENOL PO PRN (04:47)
[2018-11-07] MEDS: ZOSYN 3.375 GM in NS 50 ML IV SCH ×2 (04:47→09:40)
[2018-11-07] MEDS: ULTRAM PO PRN (06:40)
[2018-11-07] MEDS: ASPIRIN PO SCH (09:38)
[2018-11-07] MEDS: PERIDEX MT SCH (09:38)
[2018-11-07] MEDS: TOPROL XL PO SCH (09:38)
[2018-11-07] MEDS: DIFLUCAN PO SCH (09:39)
[2018-11-07] MEDS: NEURONTIN PO SCH (09:39)
[2018-11-07] MEDS: SODIUM BICARBONATE PO SCH (09:39)
[2018-11-07] MEDS: LOVENOX SUBQ SCH (09:40)
[2018-11-07] MEDS: LOKELMA POWDER PACKET PO SCH ×2 (11:37→12:21)
--- NOTE | 2018-11-07 12:22 | DISCHARGE SUMMARY ---
ADMISSION DATE: 11/01/2018 DISCHARGE DATE: ADMITTING DIAGNOSES: 1. Hyperkalemia. 2. Acute kidney injury. 3. Hyponatremia. 4. Hypotension. 5. Bradycardia. 6. Status post left knee replacement. 7. Hypothyroidism. 8. History of hypertension. 9. Possible sepsis due to the urinary tract infection. DISCHARGE DIAGNOSES: 1. Hypertension. 2. Hypothyroidism. 3. Status post left knee replacement. HOSPITAL COURSE: This is a 78-year-old female. She has a history of hypertension, hypothyroidism, GERD, and degenerative joint disease. She had a right total knee replacement in October, who developed hypotension and hyperkalemia. She was placed in the ICU and Dr. Conde was consulted. She was noted to have a urinary tract infection prior to admission and was taking Bactrim at home. Patient presents to hospital with KAMILA and sepsis related to Bactrim. Subsequently, after stopping the Bactrim, kidney function did start to improve. She was started on fluconazole for yeast per urine culture. The patient's kidney function has come back to normal. She is doing much better. She is going to rehab today. Her hyperkalemia is resolved. Her creatinine is now 0.07 with a BUN of 10. DISCHARGE MEDICATIONS: Include pravastatin 20 mg p.o. at bedtime, famotidine 40 mg p.o. daily, Fosamax 70 mg p.o. every 7 days, furosemide 40 mg p.o. p.r.n., Neurontin 100 mg p.o. 3 times a day, lisinopril 40 mg p.o. daily, Synthroid 150 mg p.o. daily, tizanidine 4 mg p.o. b.i.d., Toprol- XL 200 mg p.o. daily, Augmentin 875 mg/125 mg tablet 1 tablet p.o. q.12 hours p.r.n., aspirin 325 mg p.o. daily, fluconazole 100 mg p.o. daily, Klor-Con M20 20 mEq p.o. daily, Meloxicam 7.5 mg p.o. daily, hydrocodone/acetaminophen 10/325 1 tab, p.o. q.4 hours p.r.n., sodium bicarbonate 325 mg p.o. b.i.d. DISPOSITION: We will discharge this patient to the rehab facility. Resume activity per rehab facility. Dictated by PRANAV Bianchi for Marcelo Bender MD Addendum: Patient seen and examined by myself. Agree with PRANAV note. It reflects my assessment and plan. Patient is being discharged from hospital in stable condition to rehab. Will be seen by primary care doctor in a week. cc: MD Isai Beavers MD [facility]ITALUl[facility]
[2018-11-07 12:52] VITALS: BP 161/95
--- NOTE | 2018-11-07 14:31 | PROGRESS NOTE ---
DATE: 11/07/2018 SUBJECTIVE: Patient reports feeling fine. No complaints at this time. OBJECTIVE: Vital Signs: Temperature 98.3 degrees, heart rate 72, respiratory rate 16, blood pressure 134/71, O2 saturation is 96% on 3 L nasal cannula. General: This is a 78-year-old female lying in bed, in no acute distress. Cardiovascular: S1, S2 heard. No murmurs, gallops, or rubs. Regular rate and rhythm. Respiratory: Decreased breath sounds globally with minimal rhonchi in both pulmonary bases. No wheezing noted. Patient is not using any accessory muscles or having work of breathing. Abdomen: Soft. A little bit distended. Bowel sounds present. No organomegaly. Extremities: Mild edema in both lower extremities. There is a dressing at the level of the left knee with mild redness, but it does not look infected. Some redness of both legs which looks chronic. Neurologic: Patient is alert and oriented x3. Moves 4 extremities. LABORATORY DATA: There are no labs from today. ASSESSMENT AND PLAN: 1. Septic shock, resolved. 2. Acute kidney injury, resolved. 3. Hyperkalemia, resolved. 4. Hyponatremia, resolved. 5. Mild bradycardia upon admission, resolved. 6. Urinary tract infection secondary to yeast. Will continue with fluconazole. 7. Hypothyroidism. Will continue home medications. 8. Hypertension. We will continue with metoprolol. Blood pressure is definitely much better controlled. We will continue with the same management. 9. Metabolic encephalopathy, resolved. 10. Disposition. At this point, the patient is medically stable and we are awaiting for a rehab bed for her. cc: MD Isai Beavers MD
--- NOTE | 2018-11-08 16:54 | PROGRESS NOTE ---
DATE: 11/06/2018 SUBJECTIVE: Patient resting in the bed, complaining of mild headache. She denies any other complaints. OBJECTIVE: Vital signs: Temperature 99.1 degrees, heart rate 81, respiratory rate 14, blood pressure 130/73, O2 saturation 97% on 2 liters nasal cannula oxygen. General: This is a chronically ill appearing 78 -year-old female lying in bed in no acute distress. Cardiovascular: S1-S2 heard. No murmurs, gallops or rubs. Regular rate and rhythm. Respiratory: Decreased breath sounds globally with some rhonchi in both bases. Patient not using any accessory muscles or having work of breathing. Abdomen: Soft, nontender to palpation. Bowel sounds present. No organomegaly. Extremities: Mild edema in both lower extremities but no clubbing or cyanosis noted. Patient has dressing on the left knee with mild redness but does not look infected. Neurologic: Patient is a little bit sleepy but answered to verbal stimuli. Moves all four extremities spontaneously. ASSESSMENT/PLAN: 1. Septic shock. Patient is not in shock any more. Blood pressure is definitely much better. Last time she received vasopressor was 3 days ago. Patient is on Zosyn day #4 of treatment. We will continue with the same management. 2. Acute kidney injury, resolved. 3. Hypokalemia resolved. 4. Hyponatremia resolved. 5. Mild bradycardia resolved. Apparently that was related to metoprolol but has resolved. 6. Status post left knee replacement, aware. 7. Urinary tract infection secondary to yeast. Patient is receiving fluconazole. Will continue with same management. 8. Hypothyroidism. Will continue with same dose of Synthroid. 9. Hypertension. Blood pressure is well controlled with metoprolol that we have restarted. Lisinopril is still held for her. We will continue to monitor. 10.Metabolic encephalopathy. We are trying to stay away from strong opiates like oxycodone for this patient. She was complaining of headache and she was given Tylenol and also Demerol and apparently it is helping. We will continue with same management. 11.Physical deconditioning. Patient wanted to go home with home health but apparently per physical therapy team she is very weak that she just able to take some few steps so at this point patient is aware that if physical therapy recommends rehab she needs to go there. We will consult social security specialist to start looking for a place for her. cc: MD Isai Beavers MD MTDD
[2018-11-13] MEDS ORDERED: LASIX PO PRN (14:18)
== END 2018-11-07 13:37 | DRG 853 ==
LOC: OR 07:59 → 4N 07:59 → ICU 10-31 12:34 → 4N 11-04 23:58
PROVIDERS: ADMIT Orthopaedic Surgery Adult Reconstructive Orthopaedic Surgery; ATTEND Orthopaedic Surgery Adult Reconstructive Orthopaedic Surgery
CPT/HCPCS: 70450; 71010; 71045; 73560; 76770; 80048; 80053; 80069; 81001; 82570; 82948; 83605; 84100; 84155; 84156; 84165; 84300; 84443; 85014; 85018; 85025; 85027; 85610; 85651; 85730; 86850; 86900; 86901; 87040; 87088; 87205; 88305; 88311; 93005; 93010; 94640; 94761; 94762; 94799; 97110; 97116; 97162; 97530; A9270; C9290; J0131; J0610; J0690; J1100; J1170; J1650; J1885; J1940; J2020; J2250; J2274; J2275; J2405; J2543; J3370; J7030; J7040; J7050; J7120; Q9974; XXXXX